=== PATIENT | female | born 1975 | race Caucasian/White ===

== ENCOUNTER → 2017-12-07 | Outpatient (CLI) | payer OTHER ==
[~2017-12-07] MED LIST: MOTRIN600 MG PO; PERCOCET 5/31 TABLET PO; VALIUM5 MG PO
== END | disposition home or self-care (01) ==
LOC: RAD 13:42
PROC: 3E0R3KZ Introduction of Other Diagnostic Substance into Spinal Canal, Percutaneous Approach (ICD-10-PCS; principal; 2017-12-07)
DX: M51.26 Other intervertebral disc displacement, lumbar region (principal); Q76.49 Other congenital malformations of spine, not associated with scoliosis
CPT/HCPCS: 62304; 72132